=== PATIENT | female | born 1935 | race Caucasian/White ===

== ENCOUNTER 2017-12-28 07:10 | Observation (INO) | payer OTHER ==
[~2017-12-28] VITALS: Ht 157.5 cm; Wt 85.2 kg
[2017-12-28 07:55] LABS: HEMATOCRIT 33.1 % (36.0-46.0); HEMOGLOBIN 11.1 G/DL (11.9-15.5); MCH 27.3 PG (29.0-34.0); MCHC 33.5 G/DL (30.0-36.0); MCV 81.5 FL (83-99); NRBC (%) 0.2 /100 WBC (0-0); PLATELET COUNT 296 K/uL (156-360); RBC DIS.WIDTH-SD 38.7 % (39-53); RED BLOOD COUNT 4.06 M/uL (3.80-5.20); WHITE BLOOD COUNT 11.4 K/uL (4.1-10.2)
[2017-12-28 08:16] LABS: AMYLASE 44 IU/L (1-118); CHLORIDE 99 MEQ/L (99-109); POTASSIUM 4.5 MEQ/L (3.7-5.4); SODIUM 135 MEQ/L (136-147); TOTAL BILIRUBIN 0.9 MG/DL (0.0-1.0)
[2017-12-28 08:22] LABS: ALKALINE PHOSPHATASE 74 IU/L (3-129); ALT (GPT) 15 IU/L (3-49); AST (GOT) 16 IU/L (2-34); CREATININE 1.3 MG/DL (0.6-1.3); GFR ESTIMATE (CALCULATED) 42 mL/min/; GLUCOSE 181 mg/dL (70-99); LIPASE 44 U/L (1.0-51.0); TOTAL PROTEIN 6.4 G/DL (6.4-8.3); UREA NITROGEN (BUN) 22 mg/dL (9-23)
[2017-12-28 08:26] LABS: TROP-I INTERPRETATION NEGATIVE; TROPONIN-I < 0.01 ng/mL (0.0-0.30)
[2017-12-28] MEDS ORDERED: LISINOPRIL40 MG PO (10:36)
[2017-12-28] MEDS ORDERED: HYDROCHLOROTH12.5 M3 PO (10:36)
[2017-12-28] MEDS ORDERED: ATORVASTATIN CA40 MG PO (10:36)
[2017-12-28] MEDS ORDERED: RALOXIFENE HCL60 MG PO (10:37)
[2017-12-28] MEDS ORDERED: OMEPRAZOLE40 M1 PO (10:37)
[2017-12-28] MEDS ORDERED: AMLODIPINE BESYL5 MG PO (10:37)
[2017-12-28] MEDS ORDERED: SPIRONOLACTONE25 MG PO (10:37)
[2017-12-28] MEDS ORDERED: WELCHOL625 MG PO (10:38)
[2017-12-28] MEDS ORDERED: METOPROLOL SUC100 MG PO (10:38)
[2017-12-28] MEDS ORDERED: METFORMIN HCL1000 MG PO (10:38)
[2017-12-28] MEDS ORDERED: CITRACAL W/V1 TABLE1 PO (10:39)
[2017-12-28] MEDS ORDERED: ASPIR-LOW81 MG PO (10:39)
[2017-12-28] MEDS ORDERED: CYANOCOBALAM1000 MCG PO (10:39)
[2017-12-28 11:21] VITALS: BP 172/75
[2017-12-28 14:04] LABS: TROP-I INTERPRETATION NEGATIVE; TROPONIN-I < 0.01 ng/mL (0.0-0.30)
[2017-12-28 17:22] VITALS: BP 147/68
[2017-12-28 21:00] VITALS: BP 152/72
[2017-12-28 21:19] LABS: TROP-I INTERPRETATION NEGATIVE; TROPONIN-I 0.01 ng/mL (0.0-0.30)
[2017-12-28 23:57] VITALS: BP 135/69
[2017-12-29 04:07] VITALS: BP 118/66
[2017-12-29 08:35] VITALS: BP 168/75
[2017-12-29 11:41] VITALS: BP 156/79
== END 2017-12-29 13:20 | disposition home or self-care (01) ==
LOC: EME 07:10 → EDOF 09:55 → 4SOUTH 09:55 → ENRESERV 09:59 → 4SOUTH 11:03
PROVIDERS: Internal Medicine; Nurse Practitioner Family; Physician Assistant
DX: R07.9 Chest pain, unspecified (principal); E11.9 Type 2 diabetes mellitus without complications; I10 Essential (primary) hypertension; E78.00 Pure hypercholesterolemia, unspecified; E78.5 Hyperlipidemia, unspecified; M54.9 Dorsalgia, unspecified; R94.31 Abnormal electrocardiogram [ECG] [EKG]; R10.13 Epigastric pain; R11.2 Nausea with vomiting, unspecified; R51 Headache; Z79.82 Long term (current) use of aspirin; Z79.84 Long term (current) use of oral hypoglycemic drugs; Z83.3 Family history of diabetes mellitus; Z82.0 Family history of epilepsy and other diseases of the nervous system
CPT/HCPCS: 71046; 72128; 76705; 80053; 81003; 82150; 82948; 83690; 84484; 85027; 93005; 99281; 99285; G0378; J1644; J1815; J2270